=== PATIENT | female | born 1960 | race Caucasian/White ===

== ENCOUNTER → 2016-07-05 | Day surgery (SDC) | payer BC ==
--- NOTE | 2016-07-08 10:03 | OP ---
DATE OF OPERATION: 07/05/2016 PROCEDURE: Left ultrasound-guided core biopsy with clip placement PREOPERATIVE DIAGNOSIS: Left breast mass, 10 o'clock, 5 cm from the nipple POSTOPERATIVE DIAGNOSIS: Left breast mass, 10 o'clock, 5 cm from the nipple ANESTHESIA: Local ATTENDING SURGEON: Mis Rutledge MD ESTIMATE BLOOD LOSS: Minimal COMPLICATIONS: None OPERATIVE REPORT: Patient was made aware of the risks and benefits of the procedure and consented. She was placed in a supine position. Under sterile conditions with 1% lidocaine for local anesthesia, a small melly was made on the skin. Using a 10-gauge, suction biopsy via ultrasound control, 4 cores were obtained and submitted to pathology. Likewise, under ultrasound guidance a clip was placed into the biopsy region, well-tolerated by the patient. Steri-Strips with a sterile bandage were applied. Will contact her with the results. MIS RUTLEDGE M.D. [id number]
--- NOTE | 2016-07-08 14:35 | PATH ---
Surgical Pathology Report Patient Name: GRETEL CREWS [facility]. Rec. #: [id number] /Age/Gender: 1960 (Age: 55) / F Account: [id number] Location: Taken: 07/05/2016 Received: 07/05/2016 Reported: 07/08/2016 Physicians: Ghassan Oconnell M.D. 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 Electronically Signed Susan Hunt M.D. Gross Description Received in formalin labeled "left breast 10:00, 5 cmfn," is a 1.7 x 1.4 x 0.3 cm aggregate of multiple buenrostro-yellow, irregular to cylindrical portions of fibroadipose tissue admixed with blood clot. The formalin and filtered and the specimen is entirely submitted in one cassette. Time to formalin fixation: < 1 minute Total formalin fixation time: Approximately 6 hours. /07/05/2016 saudi07/05/2016
== END | disposition home or self-care (01) ==
LOC: FRADUS-SUR 12:49
PROVIDERS: ATTEND Surgery Surgical Oncology
PROC: 0HBU3ZX Excision of Left Breast, Percutaneous Approach, Diagnostic (ICD-10-PCS; principal; 2016-07-05)
DX: N63 Unspecified lump in breast (principal); N60.32 Fibrosclerosis of left breast; N60.82 Other benign mammary dysplasias of left breast; N60.12 Diffuse cystic mastopathy of left breast
CPT/HCPCS: 19083; 87899; 88305-TC; A4648